=== PATIENT | female | born 1960 | race Caucasian/White ===

== ENCOUNTER 2024-06-12 10:58 | Inpatient (IN) | payer BC, OTHER ==
[2024-06-12] VITALS (28 sets, daily range): BP systolic 112–140; BP diastolic 66–92; PULSE 63–71; RESP 13–30; TEMP 97.7–98.1; O2SAT 94–100
[~2024-06-12] VITALS: Ht 165.1 cm; Wt 68.2 kg
[~2024-06-12 10:58] MED LIST: BENADRYL 50 MG; FLEXERIL; NAPROXEN; NORCO 10-325 T1 EACH
[2024-06-12] MEDS ORDERED: LOSARTAN POTASS25 MG PO (11:45)
[2024-06-12] MEDS ORDERED: FUROSEMIDE40 MG PO (11:45)
[2024-06-12] MEDS ORDERED: PROTONIX20 MG PO (11:45)
[2024-06-12] MEDS ORDERED: CAFFEINE200 MG (11:45)
[2024-06-12] MEDS ORDERED: METOPROLOL SUCC50 MG PO (11:45)
[2024-06-12] MEDS ORDERED: AMLODIPINE BESYL5 MG PO (11:45)
[2024-06-12] MEDS ORDERED: VENTOLIN HFA18 GM INH (11:45)
[2024-06-12] MEDS ORDERED: ISOSORBIDE MONO30 MG PO (11:45)
[2024-06-12] MEDS ORDERED: CYMBALTA30 MG PO (11:45)
[2024-06-12] MEDS ORDERED: POTASSIUM CHLO20 ME1 PO (11:45)
[2024-06-12] MEDS ORDERED: CYCLOBENZAPRINE10 MG PO (11:45)
[2024-06-12] MEDS ORDERED: TRELEGY ELLIPT1 EACH (11:45)
[2024-06-12] MEDS ORDERED: ATORVASTATIN CA20 MG PO (11:45)
[2024-06-12] MEDS: CALCIUM GLUC 1 G/50 ML NACL 50 ML IV ONE (12:36)
[2024-06-12] MEDS: ALBUTEROL/IPRATROPIUM 3 ML NEB NEB ONE (12:37)
[2024-06-12] MEDS: FUROSEMIDE INJ 10 MG/ML 4 ML VIAL IV ONE (12:37)
[2024-06-12] MEDS: MUPIROCIN 2% OINT 22 GM TUBE TOP SCH (17:35)
[2024-06-12] MEDS ORDERED: ALBUTEROL SULF 0.083% NEB SOLN 3 ML NEB NEB PRN (17:45)
[2024-06-12] MEDS ORDERED: HYDROCODONE/APAP 10MG-325MG TAB PO PRN (17:45)
[2024-06-12] MEDS ORDERED: ONDANSETRON HCL INJ 2MG/ML 2ML 2 MG/ML VIAL IV PRN (17:45)
[2024-06-12] MEDS ORDERED: ACETAMINOPHEN 325 MG TAB PO PRN (17:45)
[2024-06-12] MEDS: ATORVASTATIN 40 MG TAB PO SCH (20:38)
[2024-06-12] MEDS: PANTOPRAZOLE SOD 40 MG TABEC PO SCH (20:38)
[2024-06-13] VITALS (33 sets, daily range): BP systolic 112–203; BP diastolic 62–102; PULSE 58–101; RESP 13–38; TEMP 97.3–98; O2SAT 85–100
[2024-06-13] MEDS: METOPROLOL SUCCINATE 25 MG TAB XL PO SCH (03:43)
[2024-06-13 06:47] LABS: BASOPHILS % 0.8 % (0.0-1.0); EOSINOPHILS # (AUTO) 0.1 (0.0-0.4); EOSINOPHILS % 2.3 % (0.0-6.0); HEMATOCRIT 34.7 % (34.2-44.1); HEMOGLOBIN 9.7 g/dL (12.0-16.0); LYMPHOCYTES # (AUTO) 0.5 (1.0-3.2); LYMPHOCYTES % 13.4 % (18.0-39.1); MEAN CORPUSCULAR HEMOGLOBIN 28.5 pg (28-32); MEAN CORPUSCULAR VOLUME 102.1 fL (81-99); MONOCYTES # (AUTO) 0.3 (0.2-0.8); MONOCYTES % 6.5 % (4.4-11.3); NEUTROPHILS # (AUTO) 3.1 (2.1-6.9); NEUTROPHILS % 76.7 % (38.7-80.0); PLATELET COUNT 181 x10e3/uL (140-360); RED CELL DISTRIBUTION WIDTH 21.9 % (11.7-14.4); WHITE BLOOD COUNT 3.97 x10e3/uL (4.8-10.8)
[2024-06-13] MEDS: LOSARTAN POTASSIUM 25 MG TAB PO SCH (06:52)
[2024-06-13] MEDS: AMLODIPINE BESYLATE 5 MG TAB PO SCH (06:52)
[2024-06-13 07:07] LABS: ALBUMIN/GLOBULIN RATIO 0.9 (0.8-2.0); ANION GAP 12.1 mmol/L (8-16); BILIRUBIN,TOTAL 0.7 mg/dL (0.2-1.2); CALCIUM 8.9 mg/dL (8.4-10.2); CHOL/HDL RATIO 3.1 (3.0-3.6); CREATININE, SERUM 1.14 mg/dL (0.57-1.11); POTASSIUM 4.1 mmol/L (3.5-5.1); TOTAL PROTEIN 6.2 g/dL (6.5-8.1)
[2024-06-13 07:30] LABS: THYROID STIMULATING HORMONE 2.564 uIU/mL (0.350-4.940)
[2024-06-13 08:49] LABS: LYMPHOCYTES % (MANUAL) 20 % (19-48); MONOCYTES % (MANUAL) 6 % (3.4-9.0); NEUTROPHILS % (MANUAL) 74 % (40-74); PLATELET ESTIMATE ADEQUATE; PLATELET MORPHOLOGY COMMENT NORMAL; RBC MORPHOLOGY COMMENT NORMAL
[2024-06-13] MEDS: DULOXETINE HCL 30 MG DELAYED RELEASE PO SCH (08:55)
[2024-06-13] MEDS: CLOPIDOGREL BISULFATE 75 MG TAB PO SCH (08:56)
[2024-06-13] MEDS: ASPIRIN 81 MG ENTERIC COATED PO SCH (08:56)
[2024-06-13] MEDS: FUROSEMIDE 40 MG TAB PO SCH (08:58)
[2024-06-13] MEDS ORDERED: ASPIRIN 81 MG ENTERIC COATED PO SCH (09:00)
[2024-06-13] MEDS ORDERED: PLAVIX75 MG PO (12:16)
== END 2024-06-13 13:41 | disposition home or self-care (01) | DRG 917 ==
LOC: FSED 11:11 → ERHOLD 12:38 → ICU 15:17
PROVIDERS: ADMIT Internal Medicine; ATTEND Internal Medicine
DX: T46.5X1A Poisoning by other antihypertensive drugs, accidental (unintentional), initial encounter (principal); I50.23 Acute on chronic systolic (congestive) heart failure; N17.9 Acute kidney failure, unspecified; I11.0 Hypertensive heart disease with heart failure; I95.2 Hypotension due to drugs; Y92.009 Unspecified place in unspecified non-institutional (private) residence as the place of occurrence of the external cause; R09.02 Hypoxemia; I25.10 Atherosclerotic heart disease of native coronary artery without angina pectoris; E78.00 Pure hypercholesterolemia, unspecified; J44.9 Chronic obstructive pulmonary disease, unspecified; F17.200 Nicotine dependence, unspecified, uncomplicated; Z99.81 Dependence on supplemental oxygen; I27.20 Pulmonary hypertension, unspecified; I45.10 Unspecified right bundle-branch block; D64.9 Anemia, unspecified; M06.9 Rheumatoid arthritis, unspecified; I73.9 Peripheral vascular disease, unspecified; G89.4 Chronic pain syndrome; F41.9 Anxiety disorder, unspecified; Z96.643 Presence of artificial hip joint, bilateral; Z79.899 Other long term (current) drug therapy; Z79.02 Long term (current) use of antithrombotics/antiplatelets
CPT/HCPCS: 36415; 71045; 80053; 80061; 81003; 82553; 83880; 84443; 84484; 85025; 93005; 94799; 96365; 96374; 99284; J0612; J1940